=== PATIENT | female | born 1960 | race Caucasian/White ===

== ENCOUNTER → 2020-12-17 | Outpatient (CLI) | payer OTHER ==
[~2020-12-17] MED LIST: CALCIUM600 MG PO; METHIMAZOLE5 MG PO; MOBIC7.5 MG PO; PAXIL30 MG PO; PREDNISONE20 MG PO; PROPRANOLOL HCL10 MG PO; PROTONIX40 MG PO; VITAMIN B-12500 MCG PO; VITAMIN D31000 UNI1 PO
== END ==
LOC: RAD 10:49
DX: M25.511 Pain in right shoulder (principal); M19.011 Primary osteoarthritis, right shoulder
CPT/HCPCS: 73030

== ENCOUNTER → 2021-02-04 | Outpatient (CLI) | payer OTHER | LOC: EXRD 12:32 | DX: E05.00 Thyrotoxicosis with diffuse goiter without thyrotoxic crisis or storm (principal); E07.9 Disorder of thyroid, unspecified | CPT/HCPCS: 76536 ==

== ENCOUNTER 2021-06-18 13:55 | Emergency (ER) | payer OTHER ==
[~2021-06-18] VITALS: Ht 160 cm; Wt 95.7 kg
== END 2021-06-18 16:21 | disposition home or self-care (01) ==
LOC: ER1 13:55
DX: Z23 Encounter for immunization (principal); U07.1 COVID-19; I10 Essential (primary) hypertension; Z90.49 Acquired absence of other specified parts of digestive tract
CPT/HCPCS: 99283; M0243

== ENCOUNTER → 2021-11-10 | Outpatient (CLI) | payer OTHER | LOC: KOH-I 14:00 | DX: I65.23 Occlusion and stenosis of bilateral carotid arteries (principal) | CPT/HCPCS: 93880 ==

== ENCOUNTER → 2021-11-12 | Outpatient (CLI) | payer OTHER | LOC: KOH-I 10:34 | DX: M26.69 Other specified disorders of temporomandibular joint (principal); G31.9 Degenerative disease of nervous system, unspecified | CPT/HCPCS: 70540; 70551 ==